=== PATIENT | male | born 1985 | race Caucasian/White ===

== ENCOUNTER 2017-11-13 16:08 | Emergency (ER) | payer SELFPAY ==
[2017-11-13 16:18] VITALS: BP 142/69
--- NOTE | 2017-11-13 16:27 | UC ---
Respiratory Complaint HPI - HPI Summary HPI Summary: 32 yo M present to with his and C/O SOB, chest tightness, sudden onset this early this am. VS at triage show HR 100, resps 32, temp 100.1, BP 142/ 69, O2 sat 96%. When asked by me to move from chair to stretcher a few steps away, pt is visibly SOB. Pt also vomited x 1. States he was fine yest, when he went on 3 mile walk. Pt's states they have just come back from outdoor races where pt has continued SOB. No hx CAD, or asthma. - History of Current Complaint Chief Complaint: UCGeneralIllness Stated Complaint: SOB Time Seen by Provider: 11/13/17 16:14 Hx Obtained From: Patient, Family/Exchange Engineer - Onset/Duration: Sudden Onset, Lasting Hours Timing: Constant Severity Initially: Moderate Severity Currently: Severe Pain Intensity: 8 Character: Cough: Nonproductive Aggravating Factors: Deep Breaths Alleviating Factors: Nothing Associated Signs And Symptoms: Positive: Dyspnea, Chills, Wheezing. Negative: Hemoptysis, Calf Pain, Calf Swelling, Edema - Allergies/Home Medications Allergies/Adverse Reactions: Allergies Allergy/AdvReac Type Severity Reaction Status Date / Time No Known Allergies Allergy Verified 11/13/17 16:10 Home Medications: Home Medications D-Methorphan/PE/Acetaminophen [Daytime Cold-Flu Relief Sftgl] 2 each PO Q4H PRN 11/13/17 [History Confirmed 11/13/17] PMH/Surg Hx/FS Hx/Imm Hx - Additional Past Medical History Additional PMH: PMH: negative Previously Healthy: Yes - Surgical History Surgical History: None - Family History Known Family History: Positive: Other - stroke Negative: Cardiac Disease - Social History Occupation: Employed Full-time Lives: With Family Alcohol Use: Occasionally Substance Use Type: None Smoking Status (MU): Current Every Day Smoker Type: Cigarettes Amount Used/How Often: wkends Length of Time of Smoking/Using Tobacco: 10 yrs Have You Smoked in the Last Year: Yes Review of Systems Constitutional: Fever, Chills Skin: Negative Eyes: Negative ENT: Negative Respiratory: Shortness Of Breath, Cough Cardiovascular: Chest Pain - tightness Gastrointestinal: Vomiting Motor: Negative Neurovascular: Negative Musculoskeletal: Negative Neurological: Negative Psychological: Negative Is Patient Immunocompromised?: No All Other Systems Reviewed And Are Negative: Yes Physical Exam Triage Information Reviewed: Yes Appearance: Ill-Appearing, Pain Distress, Obese Vital Signs: Initial Vital Signs Temp 100.1 F 11/13/17 16:11 Pulse 100 11/13/17 16:11 Resp 32 11/13/17 16:11 BP 142/69 11/13/17 16:11 Pulse Ox 96 11/13/17 16:11 Vital Signs Reviewed: Yes Eyes: Positive: Conjunctiva Clear ENT: Positive: Hearing grossly normal, Nasal congestion Neck: Positive: Supple Respiratory: Positive: Respiratory distress, Decreased breath sounds, Wheezing, Other: - cannot take a deep breath without coughing. Negative: Lungs clear, Normal breath sounds, No respiratory distress, No accessory muscle use Cardiovascular: Positive: No Murmur, Pulses Normal, Brisk Capillary Refill, Tachycardia Musculoskeletal: Positive: Strength Intact, ROM Intact, No Edema Neurological: Positive: Alert, Muscle Tone Normal Psychological Exam: Normal Skin: Positive: Other - flushed face, sunburned back UC Diagnostic Evaluation - Laboratory O2 Sat by Pulse Oximetry: 96 Re-Evaluation - Re-Evaluation First Eval Re-Evaluation Time: 16:38 Change: Unchanged Comment: Advised EKG is nonSTEMI. Pt and still want to go by private car to [facility]. Respiratory Course/Dx - Course Course Of Treatment: Pt has sudden onset this am of SOB, chest tightness, tachycardia, tachypnea, temp 100.1 and O2 sats 96%. Pt is unable to take a deep breath without coughing, expiratory wheezes when coughing. EKG shows ST 97 , no acute changes, no prior to compare. Advised pt and his that pt needs higher level of care, with monitoring, treatment, blood work, observation. is with pt wants to drive pt by private car. Discussed with Dr. Tavarez at [facility] at 16:40, accepts pt. - Differential Dx/Diagnosis Differential Diagnosis/HQI/PQRI: Aspiration, Asthma, Bronchitis, Influenza, Lower Resp Infection, Pulmonary Embolism, Other - ACS Provider Diagnoses: acute respiratory distress with tachypnea and tachycardia. chest tightness. bronchospasm. elevated BP without dx of HTN - Physician Notification/Consults Instructed by Provider To: MD Will See In ED - Dr. Mohinder Tavarez, [facility] ED, accept pt at 16:40pm Discharge - Sign-Out/Discharge Documenting (check all that apply): Discharge/Admit/Transfer - discharge to go directly to [facility] ED now with your driving - Discharge Plan Condition: Stable Disposition: HOME Discharge Disposition Comment: recommended directly to [facility] ED by private car now, driving Patient Education Materials: Dyspnea (ED) Referrals: No Primary Care Phys,NOPCP [Primary Care Provider] - Additional Instructions: Dr. You has recommended that you go directly to the [facility] Emergency Department now, for further evaluation and treatment. Dr. You spoke with Dr. Tavarez and they are expecting you. You will need to be triaged and have your vital signs taken again. They will place you in a room as soon as they are able. We are sending a copy of your EKG with you. Do not have anything to eat or drink until you are seen the the [facility] provider. - Billing Disposition and Condition Condition: STABLE Disposition: HOME
== END 2017-11-13 16:40 | disposition home or self-care (01) ==
LOC: UCCORT 16:08
DX: R06.82 Tachypnea, not elsewhere classified (principal); R00.0 Tachycardia, unspecified; R07.89 Other chest pain; J98.01 Acute bronchospasm; R03.0 Elevated blood-pressure reading, without diagnosis of hypertension; F17.210 Nicotine dependence, cigarettes, uncomplicated
CPT/HCPCS: 93005; 99202; G0463